=== PATIENT | female | born 1975 | race Caucasian/White ===

== ENCOUNTER 2017-11-05 15:08 | Inpatient (IN) ==
[2017-11-05] MEDS ORDERED: SODIUM CHLORIDE 0.9% 1,000 ML IV STA ×2 (15:26→15:44)
[2017-11-05 16:32] LABS: Basophils # 0.1 10*3/uL (0.0-0.2); Basophils % 0.7 % (0.0-0.8); Eosinophils % 0.1 % (0.00-10.9); Hematocrit 44.2 VOL% (35.7-47.0); Hemoglobin 14.8 GM/DL (12.0-16.0); Immature Granulocytes % 1.5 %; Immature Granulocytes Absolute 0.22 #; Mean Corpuscular HGB Conc 33.5 GM/DL (32-36); Mean Corpuscular Hemoglobin 27 PG (27-34); Mean Corpuscular Volume 81.1 FL (87-102); Mean Platelet Volume 10.9 FL (9.6-12.0); Monocytes # 1.2 10*3/uL (0.11-0.8); Monocytes % 7.7 % (1.7-12.7); Neutrophils # 11.6 10*3/uL (1.4-7.4); Platelet Count 198 T/CUMM (130-400); Red Blood Count 5.45 MC/CUMM (3.8-5.5); Red Cell Distribution Width 13.7 % (9.3-17.3)
[2017-11-05 16:46] LABS: INR 1.1; Partial Thromboplastin Time 29.5 SECS (0-40)
[2017-11-05 17:00] LABS: Albumin 3.7 G/DL (3.4-5.0); Bilirubin,Total 0.8 MG/DL (0.2-1.0); Calcium 8.5 MG/DL (8.5-10.1); Osmolality,Calculated 279.2 MOS/KG (273-304); Thyroid Stimulating Hormone 0.921 uIU/ml (0.358-3.74); Total Protein 7.9 G/DL (6.4-8.3)
[2017-11-05 17:36] LABS: Apearance,Urine CLOUDY (Clear); Bacteria,Urine Many /HPF (Few); Bilirubin,Urine Negative (Negative); Blood, Urine Negative (Negative); Glucose,Urine (UA) 50 mg/dL (Negative); Hyaline Casts,Urine 53 /LPF (0-3); Ketones,Urine 5 mg/dL (Negative); Mucus,Urine Occasional /LPF (Occasional); Nitrite,Urine Negative (Negative); Protein,Urine 100 MG/DL; Urine Color Amber (Yellow); Urine Specific Gravity 1.028 (1.001-1.035); Urine Urobilinogen < 2.0 EU/DL (0.2-1.0)
[2017-11-05 17:40] LABS: Barbiturates Screen,Urine Negative (Negative); Benzodiazepines Screen,Urine Negative (Negative); Cannabinoid Screen,Urine Negative (Negative); Opiate Screen,Urine Positive (Negative); Phencyclidine Screen,Urine Negative (Negative)
[2017-11-05 19:34] LABS: Risk Ratio 2.42; VLDL CHOLESTEROL 25.8 MG/DL
[2017-11-05] MEDS ORDERED: ONDANSETRON 4 MG/2 ML VIAL IV STA (19:49)
[2017-11-05] MEDS ORDERED: ONDANSETRON 4 MG/2 ML VIAL ONE (19:49)
[2017-11-05] MEDS ORDERED: LISINOPRIL 10 MG TABLET PO SCH (21:00)
[2017-11-05] MEDS: METOPROLOL TARTRATE 25 MG TABLET PO SCH (22:53)
[2017-11-05] MEDS: ATORVASTATIN 40 MG TABLET PO SCH (22:53)
[2017-11-05] MEDS: PANTOPRAZOLE 40 MG TABLET PO SCH (22:53)
[2017-11-05] MEDS: METOCLOPRAMIDE 10 MG/10 ML UDCUP PO SCH (22:54)
[2017-11-06] MEDS ORDERED: PROMETHAZINE INJ 25 MG in SODIUM CHLORIDE 0.9% 50 ML IV PRN (00:32)
[2017-11-06] MEDS: ONDANSETRON 4 MG/2 ML VIAL IV PRN (00:55)
[2017-11-06] MEDS ORDERED: DEXTROSE 50% 25 GM/50 ML VIAL IV PRN ×2 (04:26→20:44)
[2017-11-06] MEDS ORDERED: GLUCAGON 1 MG VIAL IM PRN (04:26)
[2017-11-06] MEDS ORDERED: SODIUM CHLORIDE 0.9% 1,000 ML IV SCH ×3 (04:30→05:30)
[2017-11-06] MEDS ORDERED: SODIUM CHLORIDE 0.9% 1,000 ML IV ONE ×2 (04:32→05:20)
[2017-11-06] MEDS: cefTRIAXone 1,000 MG in SYRINGE 1 EACH IV SCH ×2 (05:04→18:05)
[2017-11-06] MEDS: metroNIDAZOLE INJ 500 MG in PREMIX 1 EACH IV SCH ×3 (05:05→22:55)
[2017-11-06 05:21] LABS: ABG Base Excess -12.3 MMOL/L (-2.5-2.5); ABG HCO3 15.1 MMOL/L (20-26); ABG Oxygen Saturation 96.7 % (95-100); ABG PH 7.413 (7.35-7.45); ABG PO2 97.5 MM HG (80-95); ABG TCO2 8.7 MMOL/L (23-27); Allen Test Positive; Pt O2 Delivery Device Other
[2017-11-06] MEDS ORDERED: SODIUM CHLORIDE 0.9% 2,000 ML IV SCH (05:30)
[2017-11-06 05:37] LABS: Basophils # 0.2 10*3/uL (0.0-0.2); Basophils % 0.8 % (0.0-0.8); Eosinophils % 0.2 % (0.00-10.9); Hematocrit 47.9 VOL% (35.7-47.0); Hemoglobin 15.8 GM/DL (12.0-16.0); Immature Granulocytes % 1.2 %; Immature Granulocytes Absolute 0.23 #; Lymphocytes # 3.4 10*3/uL (1.4-4.0); Lymphocytes % 18.4 % (21.3-54.2); Mean Corpuscular Hemoglobin 27 PG (27-34); Mean Platelet Volume 11.5 FL (9.6-12.0); Monocytes # 1.5 10*3/uL (0.11-0.8); Monocytes % 8.2 % (1.7-12.7); NRBC # 0.06 10*3/uL; Neutrophils # 13.2 10*3/uL (1.4-7.4); Neutrophils % 71.2 % (38.7-73.9); Platelet Count 199 T/CUMM (130-400); Red Blood Count 5.77 MC/CUMM (3.8-5.5); Red Cell Distribution Width 13.8 % (9.3-17.3); White Blood Count 18.5 T/CUMM (4-12)
[2017-11-06 05:58] LABS: Albumin 3.8 G/DL (3.4-5.0); Calcium 8.5 MG/DL (8.5-10.1); Osmolality,Calculated 297.4 MOS/KG (273-304); Potassium 3.6 MMOL/L (3.5-5.1); Total Protein 7.2 G/DL (6.4-8.3)
[2017-11-06] MEDS: LEVOTHYROXINE 88 MCG TABLET PO SCH (06:20)
[2017-11-06] MEDS: POTASSIUM CHLORIDE RIDER 10 MEQ in PREMIX 1 EACH IV PRN ×2 (06:38→07:44)
[2017-11-06] MEDS: SODIUM CHLORIDE 0.9% 1,000 ML IV SCH ×2 (06:42→16:59)
[2017-11-06 07:19] LABS: Troponin I Only 0.516 NG/ML (0.00-0.045)
[2017-11-06] MEDS ORDERED: LINACLOTIDE 145 MCG CAPSULE PO SCH (07:30)
[2017-11-06] MEDS ORDERED: metFORMIN 500 MG TABLET PO SCH (08:00)
[2017-11-06] MEDS ORDERED: POLYETHYLENE GLYCOL POWDER 17 GM PACK PO SCH (09:00)
[2017-11-06 09:36] LABS: Lactic Acid 1.7 MMOL/L (0.4-2.0)
[2017-11-06] MEDS: METOCLOPRAMIDE 10 MG/10 ML UDCUP PO SCH ×3 (14:36→22:57)
[2017-11-06] MEDS: METOPROLOL TARTRATE 25 MG TABLET PO SCH ×2 (14:43→22:57)
[2017-11-06] MEDS: PANTOPRAZOLE 40 MG TABLET PO SCH ×2 (14:44→22:57)
[2017-11-06] MEDS: ASPIRIN EC 81 MG TABLET PO SCH (14:44)
[2017-11-06] MEDS: AZITHROMYCIN 250 MG TABLET PO SCH (14:47)
[2017-11-06] MEDS: INSULIN LISPRO 100 UNIT/ML SUBCUT SCH ×2 (18:23→22:55)
[2017-11-06] MEDS ORDERED: SODIUM BICARB INJ 150 MEQ in STERILE WATER INJ 850 ML IV SCH (19:00)
[2017-11-06] MEDS: SODIUM BICARB INJ 150 MEQ, POTASSIUM CHLORIDE INJ 20 MEQ in STERILE WATER INJ 850 ML IV SCH (19:10)
[2017-11-06] MEDS ORDERED: POTASSIUM CHLORIDE RIDER 10 MEQ in PREMIX 1 EACH IV PRN (20:44)
[2017-11-06] MEDS ORDERED: MAGNESIUM SULF RIDER 2 GM in PREMIX 1 EACH IV PRN (20:44)
[2017-11-06] MEDS ORDERED: MAGNESIUM SULF RIDER 4 GM in PREMIX 1 EACH IV PRN (20:44)
[2017-11-06] MEDS ORDERED: INSULIN REGULAR DRIP 100 ML IV SCH (21:00)
[2017-11-06 21:08] LABS: Creatinine,Urine Random 382 MG/DL; Total Protein,Urine Random 244 MG/DL; Urea Nitrogen, Urine Random 1281 MG/DL
[2017-11-06 21:56] LABS: Calcium 7.9 MG/DL (8.5-10.1); Potassium 3.2 MMOL/L (3.5-5.1)
[2017-11-06] MEDS: ATORVASTATIN 40 MG TABLET PO SCH (22:56)
[2017-11-07 00:49] LABS: Basophils # 0.1 10*3/uL (0.0-0.2); Basophils % 0.6 % (0.0-0.8); Eosinophils % 0.3 % (0.00-10.9); Hematocrit 39.1 VOL% (35.7-47.0); Hemoglobin 13.6 GM/DL (12.0-16.0); Immature Granulocytes % 0.8 %; Immature Granulocytes Absolute 0.08 #; Lymphocytes # 1.3 10*3/uL (1.4-4.0); Lymphocytes % 13.1 % (21.3-54.2); Mean Corpuscular HGB Conc 34.8 GM/DL (32-36); Mean Corpuscular Hemoglobin 28 PG (27-34); Mean Platelet Volume 11.8 FL (9.6-12.0); Monocytes # 0.8 10*3/uL (0.11-0.8); Monocytes % 7.9 % (1.7-12.7); Neutrophils # 7.8 10*3/uL (1.4-7.4); Neutrophils % 77.3 % (38.7-73.9); Platelet Count 145 T/CUMM (130-400); Red Blood Count 4.95 MC/CUMM (3.8-5.5); Red Cell Distribution Width 14.2 % (9.3-17.3); White Blood Count 10.1 T/CUMM (4-12)
[2017-11-07 01:19] LABS: Calcium 7.8 MG/DL (8.5-10.1); Osmolality,Calculated 298.7 MOS/KG (273-304); Potassium 3.2 MMOL/L (3.5-5.1)
[2017-11-07 01:21] LABS: Calcium 7.6 MG/DL (8.5-10.1); Osmolality,Calculated 300.6 MOS/KG (273-304); Potassium 3.2 MMOL/L (3.5-5.1)
[2017-11-07 01:23] LABS: Bilirubin,Total 1.2 MG/DL (0.2-1.0); Calcium 7.9 MG/DL (8.5-10.1); Osmolality,Calculated 300.6 MOS/KG (273-304); Potassium 3.1 MMOL/L (3.5-5.1)
[2017-11-07] MEDS: SODIUM BICARB INJ 150 MEQ, POTASSIUM CHLORIDE INJ 20 MEQ in STERILE WATER INJ 850 ML IV SCH (02:00)
[2017-11-07 02:13] LABS: ABG Base Excess -6.7 MMOL/L (-2.5-2.5); ABG Oxygen Saturation 96.8 % (95-100); ABG PH 7.418 (7.35-7.45); ABG PO2 93.3 MM HG (80-95); ABG TCO2 13.9 MMOL/L (23-27); Allen Test Positive; Pt O2 Delivery Device Room Air
[2017-11-07] MEDS: metroNIDAZOLE INJ 500 MG in PREMIX 1 EACH IV SCH ×3 (06:25→22:50)
[2017-11-07] MEDS: cefTRIAXone 1,000 MG in SYRINGE 1 EACH IV SCH ×2 (06:25→18:44)
[2017-11-07] MEDS: LEVOTHYROXINE 88 MCG TABLET PO SCH (06:40)
[2017-11-07 06:43] LABS: ABG PCO2 15.9 MM HG (35-48)
[2017-11-07 06:46] LABS: Calcium 7.7 MG/DL (8.5-10.1); Osmolality,Calculated 299.6 MOS/KG (273-304); Potassium 3.1 MMOL/L (3.5-5.1)
[2017-11-07] MEDS ORDERED: SODIUM BICARB IV SCH (08:00)
[2017-11-07] MEDS ORDERED: STERILE WATER IV SCH (08:00)
[2017-11-07] MEDS: METOCLOPRAMIDE 10 MG/10 ML UDCUP PO SCH ×4 (08:00→22:50)
[2017-11-07] MEDS ORDERED: POTASSIUM CHLORIDE IV SCH (08:00)
[2017-11-07] MEDS: INSULIN LISPRO 100 UNIT/ML SUBCUT SCH ×3 (08:00→18:30)
[2017-11-07 09:31] LABS: Calcium 7.6 MG/DL (8.5-10.1); Osmolality,Calculated 300.4 MOS/KG (273-304)
[2017-11-07] MEDS: AZITHROMYCIN 250 MG TABLET PO SCH (10:02)
[2017-11-07] MEDS: METOPROLOL TARTRATE 25 MG TABLET PO SCH ×2 (10:02→22:50)
[2017-11-07] MEDS: PANTOPRAZOLE 40 MG TABLET PO SCH ×2 (10:02→22:50)
[2017-11-07] MEDS: ASPIRIN EC 81 MG TABLET PO SCH (10:02)
[2017-11-07] MEDS: POTASSIUM CHLORIDE 20 MEQ TABLET PO SCH ×3 (10:49→13:14)
[2017-11-07] MEDS: ONDANSETRON 4 MG/2 ML VIAL IV PRN (10:53)
[2017-11-07] MEDS: SODIUM BICARB INJ 100 MEQ in STERILE WATER INJ 900 ML IV SCH ×2 (10:53→20:30)
[2017-11-07 13:17] LABS: Calcium 7.4 MG/DL (8.5-10.1); Osmolality,Calculated 299.4 MOS/KG (273-304); Potassium 2.9 MMOL/L (3.5-5.1)
[2017-11-07] MEDS ORDERED: DEXTROSE 50% 25 GM/50 ML VIAL IV PRN (15:40)
[2017-11-07] MEDS ORDERED: GLUCAGON 1 MG VIAL IM PRN (15:40)
[2017-11-07 16:45] LABS: Calcium 7.6 MG/DL (8.5-10.1); Osmolality,Calculated 294.7 MOS/KG (273-304); Potassium 3.4 MMOL/L (3.5-5.1)
[2017-11-07] MEDS ORDERED: ERGOCALCIFEROL 50,000 UNIT CAPSULE PO SCH (18:21)
[2017-11-07] MEDS: ATORVASTATIN 40 MG TABLET PO SCH (22:50)
[2017-11-08] MEDS: INSULIN LISPRO 100 UNIT/ML SUBCUT SCH ×5 (00:06→21:50)
[2017-11-08] MEDS: SODIUM BICARB INJ 100 MEQ in STERILE WATER INJ 900 ML IV SCH ×3 (05:00→21:38)
[2017-11-08] MEDS: metroNIDAZOLE INJ 500 MG in PREMIX 1 EACH IV SCH (05:00)
[2017-11-08] MEDS: cefTRIAXone 1,000 MG in SYRINGE 1 EACH IV SCH (06:00)
[2017-11-08] MEDS: LEVOTHYROXINE 88 MCG TABLET PO SCH (06:20)
[2017-11-08 06:22] LABS: Calcium 7.5 MG/DL (8.5-10.1)
[2017-11-08 06:54] LABS: Basophils # 0.1 10*3/uL (0.0-0.2); Basophils % 0.8 % (0.0-0.8); Eosinophils # 0.1 10*3/uL (0.0-0.87); Eosinophils % 0.8 % (0.00-10.9); Hematocrit 32.9 VOL% (35.7-47.0); Hemoglobin 11.5 GM/DL (12.0-16.0); Immature Granulocytes % 1.8 %; Immature Granulocytes Absolute 0.11 #; Lymphocytes # 1.4 10*3/uL (1.4-4.0); Lymphocytes % 23.3 % (21.3-54.2); Mean Corpuscular Hemoglobin 28 PG (27-34); Mean Corpuscular Volume 79.7 FL (87-102); Monocytes # 0.7 10*3/uL (0.11-0.8); Monocytes % 11.9 % (1.7-12.7); Neutrophils # 3.8 10*3/uL (1.4-7.4); Neutrophils % 61.4 % (38.7-73.9); Platelet Count 140 T/CUMM (130-400); Red Blood Count 4.13 MC/CUMM (3.8-5.5); Red Cell Distribution Width 14.5 % (9.3-17.3); White Blood Count 6.1 T/CUMM (4-12)
[2017-11-08 06:58] LABS: Hypochromasia 1+
[2017-11-08 07:15] LABS: Ovalocytes Slight; Platelet Estimate Normal
[2017-11-08] MEDS: METOCLOPRAMIDE 10 MG/10 ML UDCUP PO SCH ×4 (07:42→21:39)
[2017-11-08] MEDS: POTASSIUM CHLORIDE 20 MEQ TABLET PO SCH ×2 (09:14→21:40)
[2017-11-08] MEDS: ASPIRIN EC 81 MG TABLET PO SCH (09:15)
[2017-11-08] MEDS: AZITHROMYCIN 250 MG TABLET PO SCH (09:15)
[2017-11-08] MEDS: PANTOPRAZOLE 40 MG TABLET PO SCH ×2 (09:15→21:43)
[2017-11-08] MEDS: lamoTRIgine 25 MG TABLET PO SCH ×2 (11:16→21:42)
[2017-11-08] MEDS: METOPROLOL TARTRATE 25 MG TABLET PO SCH ×2 (11:17→21:42)
[2017-11-08] MEDS: PREGABALIN 100 MG CAPSULE PO SCH ×2 (11:17→21:41)
[2017-11-08] MEDS ORDERED: FLUOXETINE HCL PO SCH (21:00)
[2017-11-08] MEDS ORDERED: OLANZAPINE PO SCH (21:00)
[2017-11-08 21:01] LABS: Apearance,Urine CLOUDY (Clear); Bacteria,Urine Occasional /HPF (Few); Bilirubin,Urine Negative (Negative); Blood, Urine Small mg/dL (Negative); Glucose,Urine (UA) Negative (Negative); Ketones,Urine 5 mg/dL (Negative); Mucus,Urine Few /LPF (Occasional); Nitrite,Urine Negative (Negative); Protein,Urine 30 MG/DL; RBC,Urine 14 /HPF (0-4); Squamous Epithelial Cell,Urine Occasional /HPF (0-10); Urine Color Amber (Yellow); Urine Specific Gravity 1.028 (1.001-1.035); Urine Urobilinogen < 2.0 EU/DL (0.2-1.0); WBC,Urine 16 /HPF (0-6)
[2017-11-08] MEDS: TOPIRAMATE 100 MG TABLET PO SCH (21:40)
[2017-11-08] MEDS: ATORVASTATIN 40 MG TABLET PO SCH (21:41)
[2017-11-08] MEDS: traZODone 50 MG TABLET PO SCH (21:41)
[2017-11-09 04:41] LABS: Basophils # 0.1 10*3/uL (0.0-0.2); Basophils % 1.1 % (0.0-0.8); Eosinophils % 0.6 % (0.00-10.9); Hematocrit 31.9 VOL% (35.7-47.0); Hemoglobin 10.8 GM/DL (12.0-16.0); Immature Granulocytes % 1.8 %; Lymphocytes # 1.6 10*3/uL (1.4-4.0); Mean Corpuscular HGB Conc 33.9 GM/DL (32-36); Mean Corpuscular Hemoglobin 27 PG (27-34); Mean Corpuscular Volume 80.8 FL (87-102); Mean Platelet Volume 11.5 FL (9.6-12.0); Monocytes # 0.6 10*3/uL (0.11-0.8); Monocytes % 11.8 % (1.7-12.7); Neutrophils % 55.7 % (38.7-73.9); Platelet Count 132 T/CUMM (130-400); Red Blood Count 3.95 MC/CUMM (3.8-5.5); Red Cell Distribution Width 14.6 % (9.3-17.3); White Blood Count 5.4 T/CUMM (4-12)
[2017-11-09 05:16] LABS: Eosinophils 1 % (0-10); Lymphocytes 20 % (20-55); Segmented Neutrophils 65 % (50-85); Total Cells Counted 100
[2017-11-09 05:17] LABS: Platelet Estimate Normal
[2017-11-09 05:19] LABS: Calcium 7.8 MG/DL (8.5-10.1); Osmolality,Calculated 285.1 MOS/KG (273-304); Potassium 2.8 MMOL/L (3.5-5.1)
[2017-11-09] MEDS: SODIUM BICARB INJ 100 MEQ in STERILE WATER INJ 900 ML IV SCH ×2 (06:31→09:32)
[2017-11-09] MEDS: LEVOTHYROXINE 88 MCG TABLET PO SCH (06:33)
[2017-11-09] MEDS: POTASSIUM CHLORIDE RIDER 10 MEQ in PREMIX 1 EACH IV PRN ×5 (07:30→11:54)
[2017-11-09] MEDS: INSULIN LISPRO 100 UNIT/ML SUBCUT SCH ×4 (07:33→21:58)
[2017-11-09] MEDS: METOCLOPRAMIDE 10 MG/10 ML UDCUP PO SCH ×4 (08:23→21:55)
[2017-11-09] MEDS: METOPROLOL TARTRATE 25 MG TABLET PO SCH ×3 (08:23→21:57)
[2017-11-09] MEDS: lamoTRIgine 25 MG TABLET PO SCH ×3 (08:23→21:58)
[2017-11-09] MEDS: PANTOPRAZOLE 40 MG TABLET PO SCH ×3 (08:23→22:02)
[2017-11-09] MEDS: PREGABALIN 100 MG CAPSULE PO SCH ×3 (08:23→21:59)
[2017-11-09] MEDS: POTASSIUM CHLORIDE 20 MEQ TABLET PO SCH ×3 (08:23→21:56)
[2017-11-09] MEDS: ASPIRIN EC 81 MG TABLET PO SCH (08:23)
[2017-11-09] MEDS: DEXT 5% NACL 0.45% KCL 40 MEQ 40 MEQ/1,000 ML BAG IV SCH (10:57)
[2017-11-09] MEDS: SPIRONOLACTONE 25 MG TABLET PO SCH (14:48)
[2017-11-09] MEDS: CIPROFLOXACIN 500 MG TABLET PO SCH ×2 (14:48→21:57)
[2017-11-09] MEDS: TOPIRAMATE 100 MG TABLET PO SCH (21:57)
[2017-11-09] MEDS: traZODone 50 MG TABLET PO SCH (21:58)
[2017-11-09] MEDS: ATORVASTATIN 40 MG TABLET PO SCH (21:59)
[2017-11-10] MEDS: DEXT 5% NACL 0.45% KCL 40 MEQ 40 MEQ/1,000 ML BAG IV SCH ×2 (00:17→17:39)
[2017-11-10] MEDS: LEVOTHYROXINE 88 MCG TABLET PO SCH (06:30)
[2017-11-10 07:04] LABS: Basophils % 0.5 % (0.0-0.8); Eosinophils # 0.1 10*3/uL (0.0-0.87); Eosinophils % 2.4 % (0.00-10.9); Hematocrit 31.8 VOL% (35.7-47.0); Hemoglobin 10.3 GM/DL (12.0-16.0); Immature Granulocytes % 1.5 %; Immature Granulocytes Absolute 0.09 #; Lymphocytes # 1.9 10*3/uL (1.4-4.0); Lymphocytes % 31.9 % (21.3-54.2); Mean Corpuscular HGB Conc 32.4 GM/DL (32-36); Mean Corpuscular Hemoglobin 28 PG (27-34); Mean Platelet Volume 11.5 FL (9.6-12.0); Monocytes # 0.6 10*3/uL (0.11-0.8); Monocytes % 9.9 % (1.7-12.7); Neutrophils # 3.2 10*3/uL (1.4-7.4); Neutrophils % 53.8 % (38.7-73.9); Platelet Count 161 T/CUMM (130-400); Red Blood Count 3.74 MC/CUMM (3.8-5.5); Red Cell Distribution Width 14.6 % (9.3-17.3); White Blood Count 5.9 T/CUMM (4-12)
[2017-11-10 07:27] LABS: Band Neutrophils 1 % (0-10); Eosinophils 3 % (0-10); Lymphocytes 29 % (20-55); Platelet Estimate Normal; Segmented Neutrophils 58 % (50-85); Total Cells Counted 100
[2017-11-10] MEDS: INSULIN LISPRO 100 UNIT/ML SUBCUT SCH ×4 (07:27→21:25)
[2017-11-10 07:28] LABS: Atypical Lymphocytes Few; Hypochromasia 1+
[2017-11-10 07:34] LABS: Calcium 7.6 MG/DL (8.5-10.1); Osmolality,Calculated 282.3 MOS/KG (273-304); Potassium 3.6 MMOL/L (3.5-5.1)
[2017-11-10] MEDS: METOCLOPRAMIDE 10 MG/10 ML UDCUP PO SCH ×4 (08:22→21:21)
[2017-11-10] MEDS: PREGABALIN 100 MG CAPSULE PO SCH ×2 (08:23→21:12)
[2017-11-10] MEDS: METOPROLOL TARTRATE 25 MG TABLET PO SCH ×2 (08:23→21:11)
[2017-11-10] MEDS: lamoTRIgine 25 MG TABLET PO SCH ×2 (08:23→21:11)
[2017-11-10] MEDS: CIPROFLOXACIN 500 MG TABLET PO SCH ×2 (08:23→21:11)
[2017-11-10] MEDS: PANTOPRAZOLE 40 MG TABLET PO SCH ×2 (08:23→21:12)
[2017-11-10] MEDS: ASPIRIN EC 81 MG TABLET PO SCH (08:23)
[2017-11-10] MEDS: POTASSIUM CHLORIDE 20 MEQ TABLET PO SCH ×2 (08:23→21:11)
[2017-11-10] MEDS: SPIRONOLACTONE 25 MG TABLET PO SCH (08:23)
[2017-11-10] MEDS ORDERED: ZINC OXIDE PASTE 113 GM TUBE TOP PRN (14:57)
[2017-11-10] MEDS: ATORVASTATIN 40 MG TABLET PO SCH (21:11)
[2017-11-10] MEDS: traZODone 50 MG TABLET PO SCH (21:11)
[2017-11-10] MEDS: OLANZapine 2.5 MG TABLET PO SCH (21:12)
[2017-11-10] MEDS: TOPIRAMATE 100 MG TABLET PO SCH (21:12)
[2017-11-10] MEDS: FLUoxetine 20 MG CAPSULE PO SCH (21:21)
[2017-11-11] MEDS: LEVOTHYROXINE 88 MCG TABLET PO SCH (06:06)
[2017-11-11 07:43] LABS: Osmolality,Calculated 291.4 MOS/KG (273-304); Potassium 4.5 MMOL/L (3.5-5.1)
[2017-11-11] MEDS: DEXT 5% NACL 0.45% KCL 40 MEQ 40 MEQ/1,000 ML BAG IV SCH (08:40)
[2017-11-11] MEDS: INSULIN LISPRO 100 UNIT/ML SUBCUT SCH ×4 (08:40→22:16)
[2017-11-11] MEDS: METOCLOPRAMIDE 10 MG/10 ML UDCUP PO SCH (08:41)
[2017-11-11] MEDS: lamoTRIgine 25 MG TABLET PO SCH ×2 (08:41→22:11)
[2017-11-11] MEDS: FLUoxetine 20 MG CAPSULE PO SCH ×2 (08:42→22:12)
[2017-11-11] MEDS: PANTOPRAZOLE 40 MG TABLET PO SCH ×2 (08:42→22:12)
[2017-11-11] MEDS: METOPROLOL TARTRATE 25 MG TABLET PO SCH ×2 (08:42→22:11)
[2017-11-11] MEDS: CIPROFLOXACIN 500 MG TABLET PO SCH ×2 (08:42→22:11)
[2017-11-11] MEDS: POTASSIUM CHLORIDE 20 MEQ TABLET PO SCH ×2 (08:42→22:10)
[2017-11-11] MEDS: OLANZapine 2.5 MG TABLET PO SCH ×2 (08:42→22:11)
[2017-11-11] MEDS: PREGABALIN 100 MG CAPSULE PO SCH ×2 (08:42→22:12)
[2017-11-11] MEDS: SPIRONOLACTONE 25 MG TABLET PO SCH (08:42)
[2017-11-11] MEDS: ASPIRIN EC 81 MG TABLET PO SCH (08:42)
[2017-11-11] MEDS: LACTATED RINGERS 1,000 ML IV SCH ×2 (11:30→19:30)
[2017-11-11] MEDS: DESITIN 4OZ/NYSTATIN 15 GRAM MIXTURE PASTE TOP SCH ×2 (14:23→22:23)
[2017-11-11] MEDS: traZODone 50 MG TABLET PO SCH (22:10)
[2017-11-11] MEDS: TOPIRAMATE 100 MG TABLET PO SCH (22:11)
[2017-11-11] MEDS: ATORVASTATIN 40 MG TABLET PO SCH (22:11)
[2017-11-12] MEDS: LEVOTHYROXINE 88 MCG TABLET PO SCH (06:24)
[2017-11-12 06:25] LABS: Albumin 2.7 G/DL (3.4-5.0); Bilirubin,Total 0.6 MG/DL (0.2-1.0); Calcium 8.1 MG/DL (8.5-10.1); Total Protein 5.6 G/DL (6.4-8.3)
[2017-11-12 06:26] LABS: Potassium 4.7 MMOL/L (3.5-5.1)
[2017-11-12] MEDS: INSULIN LISPRO 100 UNIT/ML SUBCUT SCH ×4 (07:30→20:38)
[2017-11-12] MEDS: DESITIN 4OZ/NYSTATIN 15 GRAM MIXTURE PASTE TOP SCH ×2 (08:00→20:41)
[2017-11-12] MEDS: lamoTRIgine 25 MG TABLET PO SCH ×2 (09:47→20:40)
[2017-11-12] MEDS: PREGABALIN 100 MG CAPSULE PO SCH ×2 (09:48→20:39)
[2017-11-12] MEDS: METOPROLOL TARTRATE 25 MG TABLET PO SCH ×2 (09:48→20:40)
[2017-11-12] MEDS: ASPIRIN EC 81 MG TABLET PO SCH (09:48)
[2017-11-12] MEDS: PANTOPRAZOLE 40 MG TABLET PO SCH ×2 (09:48→20:39)
[2017-11-12] MEDS: CIPROFLOXACIN 500 MG TABLET PO SCH ×2 (09:49→20:39)
[2017-11-12] MEDS: FLUoxetine 20 MG CAPSULE PO SCH ×2 (09:49→20:39)
[2017-11-12] MEDS: OLANZapine 2.5 MG TABLET PO SCH ×2 (09:49→20:39)
[2017-11-12] MEDS: LACTATED RINGERS 1,000 ML IV SCH (12:29)
[2017-11-12] MEDS: traZODone 50 MG TABLET PO SCH (20:39)
[2017-11-12] MEDS: TOPIRAMATE 100 MG TABLET PO SCH (20:40)
[2017-11-12] MEDS: ATORVASTATIN 40 MG TABLET PO SCH (20:40)
[2017-11-13] MEDS: LEVOTHYROXINE 88 MCG TABLET PO SCH (05:50)
[2017-11-13] MEDS: INSULIN LISPRO 100 UNIT/ML SUBCUT SCH (09:14)
[2017-11-13] MEDS: FLUoxetine 20 MG CAPSULE PO SCH (09:22)
[2017-11-13] MEDS: METOPROLOL TARTRATE 25 MG TABLET PO SCH (09:22)
[2017-11-13] MEDS: lamoTRIgine 25 MG TABLET PO SCH (09:22)
[2017-11-13] MEDS: PREGABALIN 100 MG CAPSULE PO SCH (09:22)
[2017-11-13] MEDS: OLANZapine 2.5 MG TABLET PO SCH (09:23)
[2017-11-13] MEDS: CIPROFLOXACIN 500 MG TABLET PO SCH (09:23)
[2017-11-13] MEDS: PANTOPRAZOLE 40 MG TABLET PO SCH (09:23)
[2017-11-13] MEDS: ASPIRIN EC 81 MG TABLET PO SCH (09:23)
[2017-11-13] MEDS: DESITIN 4OZ/NYSTATIN 15 GRAM MIXTURE PASTE TOP SCH (09:24)
[2017-11-13 11:32] VITALS: BP 115/68
== END 2017-11-13 11:45 | disposition home health service (06) | DRG 720 ==
LOC: EDBD → EDUNIT# → N.ED 15:08 → N.EDINP 20:28 → SUATTDRO 20:28 → N.5E 21:16 → N.CC 11-06 05:02 → N.5E 11-10 11:56
PROVIDERS: ADMIT Family Medicine; ATTEND Family Medicine

== ENCOUNTER 2022-01-21 07:45 | Inpatient (IN) ==
[2022-01-21] MEDS ORDERED: methylPREDNISolone SOD SUC 40 MG/1 ML VIAL IM STA (08:54)
[2022-01-21] MEDS ORDERED: ALBUTEROL 2.5 MG/3 ML NEB RESP TX STA (08:54)
[2022-01-21 09:07] LABS: Basophils # 0.1 10*3/uL (0.0-0.2); Basophils % 0.3 % (0.0-0.8); Eosinophils # 0.1 10*3/uL (0.0-0.87); Eosinophils % 0.2 % (0.00-10.9); Hematocrit 41.2 VOL% (35.7-47.0); Hemoglobin 12.7 GM/DL (12.0-16.0); Immature Granulocytes % 3.4 %; Immature Granulocytes Absolute 0.81 #; Lymphocytes # 1.9 10*3/uL (1.4-4.0); Mean Corpuscular HGB Conc 30.8 GM/DL (32-36); Mean Corpuscular Volume 87.1 FL (87-102); Mean Platelet Volume 10.1 FL (9.6-12.0); Monocytes # 1.6 10*3/uL (0.11-0.8); Monocytes % 6.7 % (1.7-12.7); Neutrophils % 81.4 % (38.7-73.9); Platelet Count 331 T/CUMM (130-400); Red Blood Count 4.73 MC/CUMM (3.8-5.5); Red Cell Distribution Width 16.1 % (9.3-17.3); White Blood Count 23.9 T/CUMM (4-12)
[2022-01-21 09:09] LABS: Calcium 9.2 MG/DL (8.5-10.1); Osmolality,Calculated 282.4 MOS/KG (273-304); Potassium 4.5 MMOL/L (3.5-5.1)
[2022-01-21 09:46] LABS: Band Neutrophils 15 % (0-10); Lymphocytes 15 % (20-55); Metamyelocytes 1 %; Platelet Estimate Normal; Total Cells Counted 100
[2022-01-21 09:47] LABS: Anisocytosis Slight
[2022-01-21] MEDS ORDERED: cefTRIAXone 1,000 MG in SODIUM CHLORIDE 0.9% 100 ML IV STA (10:20)
[2022-01-21] MEDS ORDERED: ONDANSETRON 4 MG/2 ML VIAL IV PRN (12:22)
[2022-01-21] MEDS ORDERED: GLUCAGON 1 MG VIAL IM PRN (12:22)
[2022-01-21] MEDS ORDERED: ACETAMINOPHEN 325 MG TABLET PO PRN (12:22)
[2022-01-21] MEDS ORDERED: DEXTROSE 10% 250 ML BAG IV PRN (12:36)
[2022-01-21] MEDS: ALBUTEROL 2.5 MG/3 ML NEB RESP TX SCH ×2 (14:10→19:40)
[2022-01-21] MEDS: CEFEPIME 1,000 MG in SODIUM CHLORIDE 0.9% 100 ML IV SCH ×2 (15:10→21:21)
[2022-01-21] MEDS: DEXAMETHASONE 10 MG/1 ML VIAL IV SCH (15:10)
[2022-01-21] MEDS: LACTATED RINGERS 1,000 ML IV SCH (15:10)
[2022-01-21] MEDS ORDERED: FAMOTIDINE 20 MG TABLET PO SCH (21:00)
[2022-01-21] MEDS ORDERED: ATORVASTATIN 40 MG TABLET PO SCH (21:00)
[2022-01-21] MEDS: metFORMIN 500 MG TABLET PO SCH (21:20)
[2022-01-21] MEDS: INSULIN LISPRO 100 UNIT/ML SUBCUT SCH (21:20)
[2022-01-21] MEDS: APIXABAN 5 MG TABLET PO SCH (21:20)
[2022-01-21] MEDS: lamoTRIgine 100 MG TABLET PO SCH (21:20)
[2022-01-21] MEDS: GLIMEPIRIDE 4 MG TABLET PO SCH (21:20)
[2022-01-21] MEDS: [UNRECOGNIZED DRUG - OTHER] PO SCH (21:48)
[2022-01-21 23:29] LABS: Mucus,Urine Occasional /LPF (Occasional); RBC,Urine 5 /HPF (0-4); Squamous Epithelial Cell,Urine Occasional /HPF (0-10)
[2022-01-21 23:39] LABS: Bilirubin,Urine Negative (Negative); Blood, Urine Negative (Negative); Glucose,Urine (UA) 500 mg/dL (Negative); Ketones,Urine 40 mg/dL (Negative); Nitrite,Urine Negative (Negative); Protein,Urine Trace mg/dL (Negative); Urine Appearance Clear (Clear); Urine Color Yellow (Yellow); Urine Specific Gravity 1.015 (1.001-1.035); Urine Urobilinogen 0.2 eU/dL (<2.0)
[2022-01-22] MEDS: ALBUTEROL 2.5 MG/3 ML NEB RESP TX SCH ×2 (00:30→07:35)
[2022-01-22] MEDS: LACTATED RINGERS 1,000 ML IV SCH (03:56)
[2022-01-22] MEDS: CEFEPIME 1,000 MG in SODIUM CHLORIDE 0.9% 100 ML IV SCH ×2 (03:58→09:03)
[2022-01-22] MEDS ORDERED: LEVOTHYROXINE 125 MCG TABLET PO SCH (06:30)
[2022-01-22 06:33] LABS: Basophils # 0.1 10*3/uL (0.0-0.2); Basophils % 0.3 % (0.0-0.8); Hematocrit 39.8 VOL% (35.7-47.0); Hemoglobin 12.3 GM/DL (12.0-16.0); Immature Granulocytes Absolute 0.91 #; Lymphocytes # 1.6 10*3/uL (1.4-4.0); Lymphocytes % 7.1 % (21.3-54.2); Mean Corpuscular HGB Conc 30.9 GM/DL (32-36); Mean Corpuscular Volume 85.6 FL (87-102); Mean Platelet Volume 9.7 FL (9.6-12.0); Monocytes # 1.2 10*3/uL (0.11-0.8); Monocytes % 5.2 % (1.7-12.7); Neutrophils % 83.4 % (38.7-73.9); Platelet Count 342 T/CUMM (130-400); Red Blood Count 4.65 MC/CUMM (3.8-5.5); Red Cell Distribution Width 16.1 % (9.3-17.3); White Blood Count 22.9 T/CUMM (4-12)
[2022-01-22 07:04] LABS: Ferritin 463.5 ng/mL (8-252)
[2022-01-22 07:13] LABS: Band Neutrophils 18 % (0-10); Lymphocytes 11 % (20-55); Myelocytes 1 %; Nucleated Red Blood Cells 1 (0-5); Platelet Estimate Normal; Total Cells Counted 100
[2022-01-22 07:50] VITALS: BP 133/83
[2022-01-22] MEDS ORDERED: MORPHINE ER 30 MG TABLET PO SCH (09:00)
[2022-01-22] MEDS ORDERED: ASPIRIN EC 81 MG TABLET PO SCH (09:00)
[2022-01-22] MEDS ORDERED: DAPAGLIFLOZIN 10 MG TABLET PO SCH (09:00)
[2022-01-22] MEDS: GLIMEPIRIDE 4 MG TABLET PO SCH (09:03)
[2022-01-22] MEDS: APIXABAN 5 MG TABLET PO SCH (09:03)
[2022-01-22] MEDS: metFORMIN 500 MG TABLET PO SCH (09:03)
[2022-01-22] MEDS: lamoTRIgine 100 MG TABLET PO SCH (09:03)
[2022-01-22] MEDS: DEXAMETHASONE 10 MG/1 ML VIAL IV SCH (09:04)
[2022-01-22] MEDS: [UNRECOGNIZED DRUG - OTHER] PO SCH (09:04)
[2022-01-22] MEDS: INSULIN LISPRO 100 UNIT/ML SUBCUT SCH (09:05)
[2022-01-22 09:12] LABS: Albumin 2.5 G/DL (3.4-5.0); Bilirubin,Total 0.4 MG/DL (0.20-1.00); Calcium 9.5 MG/DL (8.5-10.1); Osmolality,Calculated 289.3 MOS/KG (273-304); Potassium 4.5 MMOL/L (3.5-5.1); Risk Ratio 3.45; Thyroid Stimulating Hormone 0.374 uIU/ml (0.358-3.74); Total Protein 7.9 G/DL (6.4-8.2); VLDL Cholesterol 23.8 MG/DL
== END 2022-01-22 09:55 | disposition left against medical advice (07) | DRG 139 ==
LOC: N.ED 07:45 → N.EDINP 12:22 → SUATTDRO 12:22 → N.3E 13:02
PROVIDERS: ADMIT Emergency Medicine; ATTEND Internal Medicine